=== PATIENT | male | born 1995 | race African-American/Black ===

== ENCOUNTER 2024-10-04 20:50 | Emergency (ER) | payer OTHER ==
[~2024-10-04] VITALS: Ht 175.3 cm; Wt 65.8 kg
[2024-10-04 21:36] LABS: Source, Urine Clean Catch
[2024-10-04 21:40] LABS: Bilirubin, Urine Neg (Neg); Glucose Qualitative, Urine Neg (Neg); Ketones, Urine Neg (Neg); Leukocyte Esterase, Urine Neg (Neg); Protein, Urine 1+ (Neg); Specific Gravity, Urine 1.015 (1.003-1.022); Urobilinogen, Urine NORM (Normal)
[2024-10-04 21:44] LABS: Color, Urine Yellow (P-Yellow)
[2024-10-04] MEDS ORDERED: RX Prepack 2 Tabs Ondansetron ODT 4MG UD ONE (23:45)
== END 2024-10-05 00:30 | disposition home or self-care (01) ==
LOC: ER 20:50
PROVIDERS: Student in an Organized Health Care Education/Training Program
DX: R11.0 Nausea (principal)
CPT/HCPCS: 76870; 99284-25; A9270